=== PATIENT | female | born 1980 | race Caucasian/White ===

== ENCOUNTER 2019-09-15 08:20 | Outpatient (CLI) | payer OTHER ==
--- NOTE | 2019-09-15 10:12 | XRAY Report ---
PROCEDURE: Knee 3 View RT INDICATIONS: RIGHT KNEE PAIN TECHNIQUE: 3 views of the right knee(s) were acquired. COMPARISON: None. FINDINGS: Bones: No fractures or dislocations. Sclerotic rim focus lesion is noted within the proximal tibial metaphysis measuring approximately 15 mm. No priors are available for comparison. Soft tissues: Mild joint effusion. No suspicious soft tissue calcifications. IMPRESSION: 1. Mild effusion. No visualized acute fracture or dislocation. However, occult injury cannot be exclu ded. Recommend short interval imaging follow-up in 7-10 days as clinically indicated for additional e valuation. 2. Sclerotic rimmed focus within the proximal tibial metaphysis as above. This could represent an an chondroma, bone cyst, focus of previous infarction/infection and other etiologies. If this area corre lates to pain or known history of primary malignancy, further evaluation with CT or MR is recommended . Otherwise, 3 month interval follow-up is recommended. Reviewed by: Rosetta Hernandez MD on 09/15/2019 10:11 AM PDT Approved by: Rosetta Hernandez MD on 09/15/2019 10:11 AM PDT Station ID: [id number]
== END 2019-09-15 23:59 | disposition home or self-care (01) ==
LOC: DI.S 08:20
PROVIDERS: ATTEND Physician Assistant
DX: M25.561 Pain in right knee (principal); M25.461 Effusion, right knee